=== PATIENT | female | born 1960 | race Caucasian/White ===

== ENCOUNTER 2018-09-09 10:18 | Emergency (ER) | payer MEDICARE, MEDICAID ==
[~2018-09-09] VITALS: Ht 154.9 cm; Wt 61.2 kg
--- OUTSIDE RECORDS SUMMARY | ~2018-09-09 | XMS | Clinical Summary ---
Demographics + + + | Address | [address] | | | [place] [address] | + + + | Home Phone | | + + + | Preferred Language | Unknown | + + + | Marital Status | | + + + | Shinto Affiliation | Unknown | + + + | Race | Unknown | + + + | Ethnic Group | Unknown | + + + Author + + + | Author | [facility] | | | and [place] | + + + | Organization | [facility] | | | and [place] | + + + | Address | Unknown | + + + | Phone | Unavailable | + + + Support + + + + + | Name | Relationship | Address | Phone | + + + + + | Ayde Jordan | ECON | Unknown | | + + + + + | Gabe Jordan | ECON | [address] | | | | | [address] | | | | | [address] | | + + + + + Care Team Providers + +------+ + | Care Foreman Or Supervisor And Operator Name | Role | Phone | + +------+ + | Sachin Aguirre DO | PP | Unavailable | + +------+ + Allergies No Known Allergies Medications + + + +---------+------+------+-------+ | Medication | Sig | Dispensed | Refills | Star | End | Statu | | | | | | t | Date | s | | | | | | Date | | | + + + +---------+------+------+-------+ | gabapentin | TAKE ONE TABLET BY | 120 | 2 | 11/2 | | Activ | | (NEURONTIN) 600 MG | MOUTH 4 TIMES DAILY | tablet | | 0/20 | | e | | tablet | | | | 17 | | | + + + +---------+------+------+-------+ | buPROPion | TAKE ONE TABLET BY | 60 | 2 | 11/2 | | Activ | | (WELLBUTRIN SR) 200 | MOUTH TWICE DAILY | tablet | | 0/20 | | e | | MG 12 hr tablet | | | | 17 | | | + + + +---------+------+------+-------+ | lamoTRIgine | Take 100 mg by mouth | | 0 | 06/0 | | Activ | | (LAMICTAL) 100 mg | 2 times daily. | | | 7/20 | | e | | tablet | | | | 17 | | | + + + +---------+------+------+-------+ | cyclobenzaprine | TAKE 1 TABLET BY | 30 | 0 | 03/0 | | Activ | | (FLEXERIL) 10 mg | MOUTH ONCE DAILY | tablet | | 5/20 | | e | | tablet | DIRECTED | | | 18 | | | + + + +---------+------+------+-------+ | SUMAtriptan | Take one tablet BY | 9 | 0 | 03/1 | | Activ | | (IMITREX) 100 mg | MOUTH at onset of | tablet | | 2/20 | | e | | tablet | migraine. If | | | 18 | | | | | symptoms persist, a | | | | | | | | second done may be | | | | | | | | taken in 2 hours. | | | | | | | | Do not exceed 2 | | | | | | | | doses in a 24 hour | | | | | | | | period, unless | | | | | | | | otherwise instructed | | | | | | | | by your physician. | | | | | | + + + +---------+------+------+-------+ | naproxen | Take 500 mg by mouth | | 0 | | | Activ | | (NAPROSYN) 500 mg | 2 times daily (with | | | | | e | | tablet | breakfast & | | | | | | | | dinner). | | | | | | + + + +---------+------+------+-------+ | | Take 1-2 tablets by | 15 | 0 | 05/2 | | Activ | | oxyCODONE-acetaminop | mouth every 6 hours | tablet | | 2/20 | | e | | hen (PERCOCET) 5-325 | as needed for Pain. | | | 18 | | | | mg per tablet | | | | | | | + + + +---------+------+------+-------+ | naproxen | TAKE ONE TABLET BY | 60 | 2 | 07/1 | | Activ | | (NAPROSYN) 375 mg | MOUTH TWICE DAILY | tablet | | 8/20 | | e | | tablet | NEEDED | | | 18 | | | + + + +---------+------+------+-------+ | propranolol | Take 1 capsule by | 90 | 3 | 09/2 | | Activ | | (INDERAL LA) 120 mg | mouth Daily. | capsule | | 6/20 | | e | | SR capsule | | | | 18 | | | + + + +---------+------+------+-------+ | methIMAzole | TAKE 1 TABLET BY | 60 | 0 | 07/15 | | Activ | | (TAPAZOLE) 5 mg | MOUTH TWICE DAILY | tablet | | 01/02 | | e | | tablet | | | | 19 | | | + + + +---------+------+------+-------+ Active Problems + + + | Problem | Noted Date | + + + | Mixed incontinence urge and stress (male)(female) | 04/17/2017 | + + + | Well woman exam | 04/16/2017 | + + + | Vaginal inclusion cyst | 04/16/2017 | + + + | Degeneration of intervertebral disc of lumbar region | 11/13/2016 | + + + Encounters +--------+--------+ + + + | Date | Type | Specialty | Care Team | Description | +--------+--------+ + + + | 08/08/ | Refill | | Max Mcclendon, | Medication Refill | | 2019 | | | DNP | | +--------+--------+ + + + from Last 3 Months Family History + + +------+ + | Medical History | Relation | Name | Comments | + + +------+ + | Diabetes | Father | | | + + +------+ + | Hypertension | Father | | | + + +------+ + | No known problems | Maternal | | | | | Grandfath | | | | | er | | | + + +------+ + | No known problems | Maternal | | | | | Grandmoth | | | | | er | | | + + +------+ + | No known problems | Mother | | | + + +------+ + | No known problems | Paternal | | | | | Grandfath | | | | | er | | | + + +------+ + | No known problems | Paternal | | | | | Grandmoth | | | | | er | | | + + +------+ + | Thyroid disease | Sister | | | + + +------+ + + +------+--------+ + | Relation | Name | Status | Comments | + +------+--------+ + | Father | | | | + +------+--------+ + | Maternal Grandfather | | | | + +------+--------+ + | Maternal Grandmother | | | | + +------+--------+ + | Mother | | | | + +------+--------+ + | Paternal Grandfather | | | | + +------+--------+ + | Paternal Grandmother | | | | + +------+--------+ + | Sister | | | | + +------+--------+ + Social History + + + +--------+------+ | Tobacco Use | Types | Packs/Day | Years | Date | | | | | Used | | + + + +--------+------+ | Current Every Day | Cigarettes | | | | | Smoker | | | | | + + + +--------+------+ + +---+---+---+ | Smokeless Tobacco: | | | | | Never Used | | | | + +---+---+---+ + + | Tobacco Cessation: Counseling Given: No | | Comments: 3 a day maybe | + + + + +---------+ + | Alcohol Use | Drinks/We | oz/Week | Comments | | | ek | | | + + +---------+ + | Yes | | | 1 a month | + + +---------+ + + + + | Sex Assigned at | Date Recorded | | | | + + + | Not on file | | + + + + + + + | Job Start Date | Occupation | Industry | + + + + | Not on file | Not on file | Not on file | + + + + + + + + | Travel History | Travel Start | Travel End | + + + + + + | No recent travel history available. | + + Last Filed Vital Signs + + + + | Vital Sign | Reading | Time Taken | + + + + | Blood Pressure | 122/68 | 09/03/20171327 PDT | + + + + | Pulse | 63 | 09/03/20171327 PDT | + + + + | Temperature | 36.5 C (97.7 F) | 08/24/2017 0734 PDT | + + + + | Respiratory Rate | 16 | 09/03/20171327 PDT | + + + + | Oxygen Saturation | 95% | 09/03/20171327 PDT | + + + + | Inhaled Oxygen | - | - | | Concentration | | | + + + + | Weight | 64.4 kg (142 lb) | 09/03/20171327 PDT | + + + + | Height | 154.9 cm (5' 1") | 09/03/20171327 PDT | + + + + | Body Mass Index | 26.83 | 09/03/2017 1328 PDT | + + + + Plan of Treatment + + + + + | Health Maintenance | Due Date | Last Done | Comments | + + + + + | Hepatitis C | | | | | Screening | 3 | | | + + + + + | Vaccine: | | | | | Dtap/Tdap/Td (1 - | 2 | | | | Tdap) | | | | + + + + + | Vaccine: | | | | | Pneumococcal 19-64 | 2 | | | | (PPSV23 only) Medium | | | | | Risk (1 of 1 - | | | | | PPSV23) | | | | + + + + + | Colorectal Cancer | | | | | Screening | 3 | | | | (Colonoscopy) | | | | + + + + + | Vaccine: Zoster (1 | | | | | of 2) | 3 | | | + + + + + | Adult Annual | | | | | Wellness Visit | 6 | | | + + + + + | Primary Care | | 07/16/2017, 07/11/2017, | | | Outreach (Moderate | 9 | 06/24/2017, Additional history | | | Risk) | | exists | | + + + + + | Vaccine: Influenza | | | | | (Season Ended) | 9 | | | + + + + + | Breast Cancer | | 04/22/2017, 03/30/2016 | | | Screening (Ages | 0 | | | | 50-74) | | | | + + + + + | Cervical Cancer | | 03/15/2016 | | | Screening (Pap) | 1 | | | + + + + + Implants + +------+--------+ +--------+--------+--------+ | Implanted | Type | Area | Manufacture | Device | Shelf | Model | | | | | r | | Expira | / | | | | | | Identi | tion | Serial | | | | | | fier | Date | / Lot | + +------+--------+ +--------+--------+--------+ | Mesh Hernia Surgimesh Xb | Mesh | N/A: | ASPIDE | | 09/15/ | TINTRA | | Round - | | Abdome | MEDICAL - | | 1 | C12 | | [id number] | | n | WGRASMD | | | /[id number] | | anted: Qty: 1 on 08/23/2017 | | | | | | [id number] | | by Lj Teixeira | | | | | | [id number] | | MD [place] | | | | | | [id number] | | | | | | | | 3 | | | | | | | | /[id number] | | | | | | | | [id number] | + +------+--------+ +--------+--------+--------+ | Mesh Hernia Surgimesh Wn | | Right: | ASPIDE | | 06/19/ | T1116- | | 11x16 - [id number]: | | | MEDICAL - | | 2022 | [id number] / | | Qty: 1 on 08/23/2017 by | | Inguin | WGRASMD | | | /[id number] | | Lj Teixeira | | al | | | | [id number] | | | | | | | | [id number] | | | | | | | | [id number] | | | | | | | | [id number] | | | | | | | | [id number] | + +------+--------+ +--------+--------+--------+ | Suture Wyatt 5mm Sorbafix 5/Bx | | N/A: | DAVOL - DIV | | 03/12/ | [id number] | | - [id number]: | | Abdome | OF BARD - | | 2018 | 6 | | Qty: 1 on 08/23/2017 by | | n | WGRDAVO | | | /[id number] | | Lj Teixeira, | | | | | | [id number] | | MD | | | | | | [address] | | | | | | | | /[id number] | | | | | | | | [id number] | | | | | | | | [id number] | | | | | | | | 8 | + +------+--------+ +--------+--------+--------+ Results Not on filefrom Last 3 Months Insurance + +--------+ +--------+ +---------+--------+ | Payer | Benefi | Subscriber | Effect | Phone | Address | Type | | | t Plan | ID | kb | | | | | | / | | Dates | | | | | | Group | | | | | | + +--------+ +--------+ +---------+--------+ | MEDICARE | MEDICA | [id number] | 10/14/19 | [phone] | | Medica | | | RE | | 17-Pre | 5 | | re | | | PART A | | sent | | | | | | AND B | | | | | | + +--------+ +--------+ +---------+--------+ | [place] | MEDICA | [id number] | | [phone] | | Medica | | | ID | | 017-Pr | 2 | | id | | | [place] | | esent | | | | + +--------+ +--------+ +---------+--------+ + +--------+ +--------+ + + | Guarantor Name | Accoun | Relation to | Date | Phone | Billing Address | | | t Type | Patient | of | | | | | | | | | | + +--------+ +--------+ + + | Jennifer Jordan | Person | Self | [birth year] | [address] | | | al/[place]ie | | 1961 | [phone] | [address] [place] | | | robi | | | 0 (Home) | [address] | + +--------+ +--------+ + + Advance Directives Patient has advance care planning documents, and code status on file. For more information, please contact:[place] [address] + + + + + | Code Status | Date | Date | Comments | | | Activated | Inactivated | | + + + + + | Full Code | 08/23/2017 | 08/24/2017 | | | by default | 17:08 | 15:06 | | | - TBD | | | | + + + + + + + + +---+ | | | | | + + + +---+ | Full Code | 08/23/2017 | 08/23/2017 | | | by default | 11:00 | 17:08 | | | - TBD | | | | + + + +---+
--- OUTSIDE RECORDS SUMMARY | ~2018-09-09 | XMS | Encounter Summary ---
Demographics + + + | Address | [address] | | | [place] [address] | + + + | Home Phone | | + + + | Preferred Language | Unknown | + + + | Marital Status | | + + + | Zoroastrianism Affiliation | Unknown | + + + | Race | Unknown | + + + | Ethnic Group | Unknown | + + + Author + + + | Author | [facility] | | | and [place] | + + + | Organization | [facility] | | | [...] [place] | | | | | [address] | | + + + + + Care Team Providers + +------+ + | Care Lumber Marker Name | Role | Phone | + +------+ + | Sachin Aguirre DO | PCP | Unavailable | + +------+ + Reason for Visit + + + | Reason | Comments | + + + | Medication Refill | | + + + Encounter Details +--------+--------+ + + + | Date | Type | Department | Care Team | Description | +--------+--------+ + + + | 08/08/ | Refill | [facility] | Max Mcclendon, | Medication Refill | | 2018 | | [facility] | DNP [address] | | | | | MEDICAL CLIN[address] | [place] [address] | | | | | [address] [place], | [phone] | | | | | [place] [address] | | | | | | [phone] | | | +--------+--------+ + + + Social History + + + +--------+------+ [...] | | + +---+---+---+ + + | Comments: 3 a day maybe | [...] recent travel history available. | + + documented as of this encounter Functional Status + + + + | Functional Status | Response | Date of Assessment | + + + + | Are you deaf or do you have serious | No | 08/24/2017 | | difficulty hearing? | | | + + + + | Are you blind or do you have serious | No | 08/24/2017 | | difficulty seeing, even when wearing | | | | glasses? | | | + + + + | Do you have serious difficulty walking or | No | 08/24/2017 | | climbing stairs? (5 years old or older) | | | + + + + | Do you have difficulty dressing or bathing? | No | 08/24/2017 | | (5 years old or older) | | | + + + + | Because of a physical, mental, or emotional | No | 08/24/2017 | | condition, do you have difficulty doing | | | | errands alone such as visiting a doctor's | | | | office or shopping? [15 years old or | | | | older)] | | | + + + + + + + + | Cognitive Status | Response | Date of Assessment | + + + + | Because of a physical, mental, or emotional | No | 08/24/2017 | | condition, do you have serious difficulty | | | | concentrating, remembering, or making | | | | decisions? (5 years old or older) | | | + + + + documented as of this encounter Plan of Treatment Not on filedocumented as of this encounter Visit Diagnoses Not on filedocumented in this encounter"
--- OUTSIDE RECORDS SUMMARY | ~2018-09-09 | XMS | Encounter Summary ---
Demographics + + + | Address | [address] | | | [place] [address] | + + + | Home Phone | | + + + | Preferred Language | Unknown | + + + | Marital Status | | + + + | Buddhist Affiliation | Unknown | + + + | Race | Unknown | + + + | Ethnic Group | Unknown | + + + Author + + + | Author | [facility] | | | and [place] | + + + | Organization | [facility] | | | [...] [place] | | | | | [address] | | + + + + + Care Team Providers + +------+ + | Care Group Director Name | Role | Phone | + [...] Medication Refill | | 2018 | | [facility] | DNP [address] | | | | | MEDICAL CLIN[address] | [place] [address] | | | | | [address] [place], | [phone] | | | | | [place] [address] | | | | | | [phone] | | | +--------+--------+ + + + [...]
--- OUTSIDE RECORDS SUMMARY | ~2018-09-09 | XMS | Clinical Summary ---
Demographics + + + | Address | [address] | | | [place] [address] | + + + | Home Phone | | + + + | Preferred Language | Unknown | + + + | Marital Status | | + + + | Church Affiliation | Unknown | + + + | Race | Unknown | + + + | Ethnic Group | Unknown | + + + Author + + + | Author | [facility] | | | and [place] | + + + | Organization | [facility] | | | [...] | + + + + + | Gaeb Jordan | ECON | [address] | | | | | [address] | | | | | [address] | | + + + + + Care Team Providers + +------+ + | Care Studio Data Analyst Name | Role | Phone | + [...] | | 1 | C12 | | [id number] | | n | WGRASMD | | | /[id number] | | anted: Qty: 1 on 08/23/2017 | | | | | | [id number] | | by Lj Teixeira | | | | | | [id number] | | MD Raúl | | | | | | [id number] | | | | | | | | 3 | | | | | | | | /[id number] | | | | | | | | [id number] | + +------+--------+ +--------+--------+--------+ | Mesh Hernia Surgimesh Wn | | Right: | ASPIDE | | 06/19/ | T1116- | | 11x16 - [id number]: | | | MEDICAL - | | 2022 | [id number] / | | Qty: 1 on 08/23/2017 by | | Inguin | WGRASMD | | | /[id number] | | Lj Teixeira | | al | | | | [id number] | | | | | | | | [id number] | | | | | | | | 735105 | | | | | | | | [id number] | | | | | | | | [id number] | + +------+--------+ +--------+--------+--------+ | Suture Wyatt 5mm Sorbafix 5/Bx | | N/A: | DAVOL - DIV | | 03/12/ | [id number] | | - [id number]: | | Abdome | OF BARD - | | 2018 | 6 | | Qty: 1 on 08/23/2017 by | | n | WGRDAVO | | | /[id number] | | Lj Teixeira, | | | | | | [id number] | | MD | | | | | | [address] | | | | | | | | /[id number] | | | | | | | | [id number] | | | | | | | | [id number] | | | | | | | [...] +--------+ +---------+--------+ | MEDICARE | MEDICA | [id number] | 10/14/19 | [phone] | | Medica | | | RE | | 17-Pre | 5 | | re | | | PART A | | sent | | | | | | AND B | | | | | | + +--------+ +--------+ +---------+--------+ | [place]ICAID [place] | MEDICA | [id number] | | [phone] | | Medica | [...] [place] | | | 0 (Home) | [address] | + +--------+ +--------+ + + Advance Directives Patient has advance care planning documents, and code status on file. For more information, please contact:[facility] [place] [address] + + + + + | Code [...]
[2018-09-09] MEDS ORDERED: LAMOTRIGINE100 MG PO (10:34)
[2018-09-09] MEDS ORDERED: METHIMAZOLE5 MG PO (10:35)
[2018-09-09] MEDS ORDERED: TRAZODONE HCL50 MG PO (10:35)
[2018-09-09] MEDS ORDERED: BUPROPION XL300 MG PO (10:35)
[2018-09-09] MEDS ORDERED: GABAPENTIN600 MG PO (10:35)
[2018-09-09] MEDS ORDERED: BUSPIRONE HCL10 MG PO (10:35)
[2018-09-09] MEDS ORDERED: PROPRANOLOL HCL60 M1 PO (10:35)
[2018-09-09] MEDS ORDERED: LATUDA40 MG PO (10:35)
[2018-09-09] MEDS ORDERED: CYCLOBENZAPRINE10 MG PO (10:36)
[2018-09-09] MEDS ORDERED: MEDROL4 MG PO (11:45)
[2018-09-09] MEDS ORDERED: MOBIC7.5 MG PO (11:45)
== END 2018-09-09 12:45 | disposition home or self-care (01) ==
LOC: ED 10:18
DX: M70.72 Other bursitis of hip, left hip (principal); Z79.899 Other long term (current) drug therapy
CPT/HCPCS: 73502; 96372; 99283-25; J1885; J7512

== ENCOUNTER 2021-04-02 11:13 | Emergency (ER) | payer OTHER, MEDICARE ==
[~2021-04-02] VITALS: Ht 154.9 cm; Wt 65.8 kg
[~2021-04-02 11:13] MED LIST: BUPROPION XL300 MG PO; BUSPIRONE HCL10 MG PO; CYCLOBENZAPRINE10 MG PO; GABAPENTIN600 MG PO; LAMOTRIGINE100 MG PO; LATUDA40 MG PO; MEDROL4 MG PO; METHIMAZOLE5 MG PO; MOBIC7.5 MG PO; PROPRANOLOL HCL60 M1 PO; TRAZODONE HCL50 MG PO
== END 2021-04-02 12:55 | disposition home or self-care (01) ==
LOC: ED 11:13
DX: S06.0X0A Concussion without loss of consciousness, initial encounter (principal); W00.0XXA Fall on same level due to ice and snow, initial encounter; M19.90 Unspecified osteoarthritis, unspecified site; F17.200 Nicotine dependence, unspecified, uncomplicated; Z79.899 Other long term (current) drug therapy
CPT/HCPCS: 70450; 99283-25

== ENCOUNTER 2021-05-31 07:35 | Day surgery (SDC) | payer MEDICARE, MEDICAID ==
[~2021-05-31] VITALS: Ht 154.9 cm; Wt 66.8 kg
[2021-05-31] MEDS ORDERED: IMITREX25 MG PO (07:58)
[2021-05-31] MEDS ORDERED: TRAMADOL HCL50 MG PO (09:01)
--- NOTE | 2021-05-31 09:12 | NUR ---
05/31/21 0912 Yanira Grant 0908 PATIENT ARRIVES TO PACU UNRESPONSIVE TO VERBAL STIMULI. RESP EVEN AND UNLABORED, SNORING, HEAD REPOSITIONED, HOB ELEVATED, SNORING RESOLVED, MASK AT 6 LITERS.
--- NOTE | 2021-06-01 07:41 | OR ---
[facility] [address] [place], [place] [address] Signed DATE OF OPERATION: 05/31/2021 SURGEON: Solomon Emery MD PREOPERATIVE DIAGNOSIS: Carpal tunnel syndrome, right. POSTOPERATIVE DIAGNOSIS: Carpal tunnel syndrome, right. PROCEDURE PERFORMED: Right carpal tunnel release. LEGAL TRANSCRIBER: None. ANESTHESIA: Dereck block. TOURNIQUET TIME: 20 minutes. BRIEF HISTORY: Ms. Rodriguez is a 60-year-old female with numbness and tingling in her hand. Risks and benefits of operative treatment were discussed with her after she had failed nonoperative treatment and nerve conduction studies confirmed carpal tunnel. DESCRIPTION OF PROCEDURE: Once consent was obtained, she was taken to the operating room. After adequate anesthesia, she was placed on the hand table. The upper extremity was then prepped and draped in a standard sterile fashion up to the tourniquet. The carpal tunnel was approached through a 1.5 cm incision in the distal wrist crease, carried through skin and subcutaneous tissue. Under direct the loupe magnification. The palmaris longus was identified retracted and protected. The transverse carpal ligament was then dissected free of overlying soft tissue and released proximally a cm and distally to the distal extent. This was palpated using the [place] to ensure complete release. The wound was then copiously irrigated with normal saline, closed with 3-0 nylon and injected with 5 mL of 0.25% Marcaine plain. The wound was then dressed with bacitracin, Adaptic, 4 x 8s, and gauze. She tolerated the procedure well. All sponge, needle, and instrument counts Electronically Signed By: SOLOMON EMERY MD 06/01/21 0741 PATIENT NAME: DEBBIE MICHEL OPERATIVE REPORT DATE OF : 64 REPORT #: [id number] PHYSICIAN: SOLOMON EMERY MD PCP: MAREK VILLEGAS MD REPORT IS CONFIDENTIAL AND NOT TO BE RELEASED WITHOUT AUTHORIZATION [address] [address] Signed were correct. Solomon Emery MD BA/MODL /[id number] Copies: ~ Electronically Signed By: SOLOMON EMERY MD 06/01/21 0741 PATIENT NAME: DEBBIE MICHEL OPERATIVE REPORT DATE OF : 64 REPORT #: [id number] PHYSICIAN: SOLOMON EMERY MD PCP: MAREK VILLEGAS MD REPORT IS CONFIDENTIAL AND NOT TO BE RELEASED WITHOUT AUTHORIZATION
== END 2021-05-31 10:00 | disposition home or self-care (01) ==
LOC: DS 07:35
PROVIDERS: ATTEND Specialist
PROC: 01N50ZZ Release Median Nerve, Open Approach (ICD-10-PCS; principal; 2021-05-31 08:45)
DX: G56.01 Carpal tunnel syndrome, right upper limb (principal)
CPT/HCPCS: 01810; J0690; J2704; J7121